=== PATIENT | male | born 1945 | race American Indian/Alaskan Native ===

== ENCOUNTER 2017-11-20 10:45 | Emergency (ER) | payer MEDICARE, OTHER ==
[2017-11-20 10:49] VITALS: BMI 23.4
--- NOTE | 2017-11-20 10:53 | C.PDOC ---
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 As per , patient was grocery shopping with her then suddenly experienced weakness, started shaking, and was unable to stand. reports as she helped the patient to regain balance and tried to make him stand, he was completely unable to stand up and could not follow command then she called 911 and came to ED. Denies LOC. As per EMS, patient has right sided weakness and slurred speech on arrival to ER. Fingerstick 82 mg/dl. Patient is currently awake in ER. Code stroke called in ER and patient was immediately transported to CT scan. Also as per , "patient experienced a head injury after falling on his head few years ago and he was bleeding and they drained his head." Time Seen by Provider: 11/20/17 10:51 Chief Complaint (Nursing): Weakness/Neurological Deficit History Per: EMS, Family () History/Exam Limitations: clinical condition Onset/Duration Of Symptoms: Hrs, Sudden Onset Current Symptoms Are (Timing): Still Present Activity At Onset Of Symptoms: Standing Associated Symptoms Preceding Syncopal Episode: No Predromal Symptoms (Sudden Onset) Seizure Or Post-ictal Symptoms: None Fall Associated With With Symptoms: No Recent travel outside of the [place]: No - Symptoms Of CVA Associated Symptoms: Decreased Ability To Walk Character Of Deficits: Right: Weakness Recent Aspirin Use: Unknown Current Coumadin Use?: Unknown Recent Head Trauma: No Past Medical History Reviewed: Historical Data, Nursing Documentation, Vital Signs Vital Signs: Last Vital Signs Temp 97.6 F 11/20/17 15:04 Pulse 81 11/20/17 15:04 Resp 16 11/20/17 15:04 BP 170/109 H 11/20/17 15:04 Pulse Ox 98 11/20/17 15:04 - Medical History PMH: HTN, Hypercholesterolemia Family History: States: No Known Family Hx Review Of Systems Except As Marked, All Systems Reviewed And Found Negative. Constitutional: Negative for: Fever Cardiovascular: Negative for: Chest Pain Physical Exam - Physical Exam Additional Physical Exam Comments: Constitutional: No acute distress. Head: Normocephalic. Atraumatic. Eyes: PERRL. ENT: Moist mucous membranes. Neck: Supple. Cardiovascular: Regular rate. Radial pulse 2+ bilaterally. Chest: No tenderness. Respiratory: Clear to auscultation bilaterally. GI: Soft. Nontender. Nondistended. Back: No CVA tenderness. Musculoskeletal: No tenderness or swelling of extremities. Skin: No rash. Neurologic: Alert, no focal deficit. ED Course And Treatment - Laboratory Results Result Diagrams: 11/20/17 10:55 11/20/17 10:55 Critical Care Time - Critical Care Note Total Time (in mins): 60 Comments: Required my immediate attention upon arrival and coordination with multiple specialists. Documented critical care: time excludes all time spent performing seperately billable procedures. NIHSS Stroke Scale 2 - Date/Time Evaluation Performed Date Performed: 11/20/17 Time Performed: 10:52 When Was NIHSS Performed: Baseline - How Severe is the Stroke Level of Consciousness: 0=Alert LOC to Questions: 0=Both comments correct LOC to commands: 0=Obeys both correctly Best Gaze: 0=Normal Visual: 0=No visual loss Facial: 0=Normal Motor Arm - Left: 0=No drift Motor Arm - Right: 2=Falls before 10 sec Motor Leg - Left: 0=No drift Motor Leg - Right: 2=Falls before 5 sec Limb Ataxia: 0=Absent Sensory: 0=Normal Best Language: 1=Mild to moderate aphasia Dysarthia: 0=Normal articulation Extinction & Inattention (Neglect): 0=Normal, no object Score: 5 Severity Of Stroke: 5-15 = Moderate Stroke Medical Decision Making Medical Decision Making: Code Stroke called. Administered IV fluids. ORdered BBK, blood work, head/neck CTA, CT head, EKG, and CXR. CT Head: Date of service: 11/20/2017 PROCEDURE: CT HEAD WITHOUT CONTRAST. HISTORY: Code Stroke COMPARISON: None available. TECHNIQUE: Axial computed tomography images were obtained through the head/brain without intravenous contrast. Radiation dose: Total exam DLP = 1251.8 mGy-cm. This CT exam was performed using one or more of the following dose reduction techniques: Automated exposure control, adjustment of the mA and/or kV according to patient size, and/or use of iterative reconstruction technique. FINDINGS: HEMORRHAGE: No intracranial hemorrhage. BRAIN: No mass effect or edema. Atrophy. Chronic microvascular ischemic changes. VENTRICLES: Unremarkable. No hydrocephalus. CALVARIUM: Prior bilateral cranioplasty. PARANASAL SINUSES: Opacification of the right maxillary sinus. MASTOID AIR CELLS: Unremarkable as visualized. No inflammatory changes. OTHER FINDINGS: None. IMPRESSION: No acute intracranial pathology. Age-related changes. Findings conveyed to Dr. Santiago by Dr. Rehman at 11:05 am on 11/20/2017. CXR: Date of service: 11/20/2017 HISTORY: Code Stroke COMPARISON: No prior. FINDINGS: LUNGS: No active pulmonary disease. PLEURA: No significant pleural effusion identified, no pneumothorax apparent. CARDIOVASCULAR: Atherosclerotic aortic calcifications. Cardiomediastinal silhouette enlarged. OSSEOUS STRUCTURES: Degenerative changes. VISUALIZED UPPER ABDOMEN: Normal. OTHER FINDINGS: None. IMPRESSION: No active disease. Head/Neck CTA: EXAM: CT Angiography Head With Intravenous Contrast CT Angiography Neck With Intravenous Contrast CLINICAL HISTORY: 72 years old, male; Signs and symptoms; Weakness; Additional info: Code stroke TECHNIQUE: Axial computed tomographic angiography images of the head and neck with intravenous contrast using CT angiography protocol. All CT scans at this facility use at least one of these dose optimization techniques: automated exposure control; mA and/or kV adjustment per patient size (includes targeted exams where dose is matched to clinical indication); or iterative reconstruction. MIP reconstructed images were created and reviewed. Coronal and sagittal reformatted images were created and reviewed. CONTRAST: 100 mL of VISIPAQUE administered intravenously. COMPARISON: No relevant prior studies available. FINDINGS: HEAD: Right anterior cerebral artery: Unremarkable. No occlusion or significant stenosis. No aneurysm. Right middle cerebral artery: Unremarkable. No occlusion or significant stenosis. No aneurysm. Right posterior cerebral artery: origin of USABILITY ENGINEER with irregular contour secondary to atherosclerotic disease. No occlusion or significant stenosis. No aneurysm. Left anterior cerebral artery: There maybe un paired A2 segment but there is a partial filled segment of vessel on the left, image 215 hard to connect somewhere either small left A2 w prox stenosis or occlusion and segmental filling or small frontopolar branch. No aneurysm. Left middle cerebral artery: Left M2 occlusion seen on image 209 series 2 likely due to acute thrombus in view of lack of prior infarct. Left M1 segment is patent. Left posterior cerebral artery: origin of USABILITY ENGINEER with irregular contour secondary to atherosclerotic disease. [facility] | Preliminary Radiology Report Basilar artery: There is flow basilar artery opacification. No occlusion or significant stenosis. No aneurysm. Brain: Cerebral and cerebellar volume loss. Patchy hypodensity is seen in the periventricular and subcortical white matter. Sinuses: There is opacification of right maxillary sinus with hyperdense material representing inspissated secretions versus blood versus fungal sinusitis only if clinically suspected. Sella: There is enlargement of sella with enlargement of the pituitary gland measuring 2.0 cm. Dental: Edentulous maxilla and mandible. NECK: Right common carotid artery: Unremarkable. No significant stenosis. No dissection or occlusion. Right internal carotid artery: Unremarkable. No significant stenosis. No dissection or occlusion. Right external carotid artery: Unremarkable. No occlusion. Right vertebral artery: Diffuse patent narrow caliber of right vertebral artery. Left common carotid artery: Unremarkable. No significant stenosis. No dissection or occlusion. Left internal carotid artery: Unremarkable. No significant stenosis. No dissection or occlusion. Left external carotid artery: There is mild narrowing of left ECA. This is seen on image 73 series 601. No occlusion. Left vertebral artery: Diffuse patent narrow caliber of left vertebral artery. Other vasculature: Bovine aortic arch. Lung apices: COPD with mild haziness of the lungs. Mediastinum: Nonspecific distention of the cervicothoracic esophagus with wall thickening with intraluminal debris may represent delayed emptying versus gastroesophageal reflux and can increase patient risk of aspiration. HEAD and NECK: Bones/joints: Bilateral craniectomy with osseous hardware. No acute fracture. No dislocation. Soft tissues: Unremarkable. No mass. CAROTID STENOSIS REFERENCE USING NASCET CRITERIA: % ICA stenosis = (1 - narrowest ICA diameter/diameter of distal cervical ICA) x 100. Mild - <50% stenosis. Moderate - 50-69% stenosis. Severe - 70-94% stenosis. Near occlusion - 95-99% stenosis. Occluded - 100% stenosis. IMPRESSION: 1. Left M2 occlusion seen on image 209 series 2 likely due to acute thrombus in view of lack of prior infarct. Correlation with patient's symptoms for the acute ischemic change of this region. 2. There is enlargement of sella with possible enlargement of the pituitary gland measuring 2.0 cm . The possibility of thrombosed aneurysm can't be excluded for the differential of sellar mass is but would probably follow up with prior history or MRI performed in the pituitary gland protocol. Correlation with clinical evaluation is recommended only if active pituitary gland function disease is physiologically and clinically suspected. Patient was not candidate for tPA. Angio reveals occlusion of MCA, Dr. Lema discussed case with Dr. Kline Neuro interventionalist at [place]. [place] [facility] [place] Afib, no ST elevations, no QTc prolongation. Disposition - Disposition Disposition: Trans to Other Acute Care Hosp Disposition Time: 12:00 Condition: GUARDED Forms: [facility] (Lithuanian) - POA Core Measure Indicators: Code Stroke - Clinical Impression Clinical Impression: CVA (cerebral vascular accident) - Scribe Statement The provider has reviewed the documentation as recorded by the Scribe Andie Carrillo All medical record entries made by the Scribe were at my direction and personally dictated by me. I have reviewed the chart and agree that the record accurately reflects my personal performance of the history, physical exam, medical decision making, and the department course for this patient. I have also personally directed, reviewed, and agree with the discharge instructions and disposition.
[2017-11-20 11:00] LABS: BASO % 0.6 % (0.0-2.0); EOS # 0.4 K/uL (0.0-0.7); EOS % 18.5 % (0.0-4.0); HEMOGLOBIN 11.3 g/dL (12.0-18.0); LYMPH # 0.8 K/uL (1.0-4.3); LYMPH % 33.7 % (20.0-40.0); MEAN CELL VOLUME 86.8 fL (80.0-94.0); MEAN CORPUSCULAR HEMOGLOBIN 28.7 pg (27.0-31.0); MEAN PLATELET VOLUME 8.1 fL (7.2-11.7); MONO # 0.3 K/uL (0.0-0.8); MONO % 13.5 % (0.0-10.0); NEUT # 0.8 K/uL (1.8-7.0); NEUT % 33.7 % (50.0-75.0); NRBC % 0.1 % (0.0-2.0); RBC 3.95 Mil/uL (4.40-5.90); RED CELL DISTRIBUTION WIDTH 14.9 % (11.5-14.5); WHITE BLOOD COUNT 2.4 K/uL (4.8-10.8)
[2017-11-20] MEDS ORDERED: Sodium Chloride 0.9% 1,000 ML IV SCH (11:00)
[2017-11-20] MEDS ORDERED: Iodixanol 320 MG/ML 100 ML BOTTLE IV ONE (11:05)
[2017-11-20 11:08] LABS: INR 1.2; PROTHROMBIN TIME 13.3 SECONDS (9.7-12.2)
--- NOTE | 2017-11-20 11:08 | CT ---
Date of service: 11/20/2017 PROCEDURE: CT HEAD WITHOUT CONTRAST. HISTORY: Code Stroke COMPARISON: None available. TECHNIQUE: Axial computed tomography images were obtained through the head/brain without intravenous contrast. Radiation dose: Total exam DLP = 1251.8 mGy-cm. This CT exam was performed using one or more of the following dose reduction techniques: Automated exposure control, adjustment of the mA and/or kV according to patient size, and/or use of iterative reconstruction technique. FINDINGS: HEMORRHAGE: No intracranial hemorrhage. BRAIN: No mass effect or edema. Atrophy. Chronic microvascular ischemic changes. VENTRICLES: Unremarkable. No hydrocephalus. CALVARIUM: Prior bilateral cranioplasty. PARANASAL SINUSES: Opacification of the right maxillary sinus. MASTOID AIR CELLS: Unremarkable as visualized. No inflammatory changes. OTHER FINDINGS: None. IMPRESSION: No acute intracranial pathology. Age-related changes. Findings conveyed to Dr. Santiago by Dr. Rehman at 11:05 am on 11/20/2017.
[2017-11-20 11:13] LABS: ALB/GLOB RATIO 1.1 (1.0-2.1); ALBUMIN 3.4 g/dL (3.5-5.0); CALCIUM 9.2 mg/dl (8.6-10.4)
[2017-11-20 11:23] LABS: TROPONIN I 0.09 ng/mL (0.00-0.120)
[2017-11-20 11:41] LABS: URINE BACTERIA MANY (<OCC); URINE BILIRUBIN NEGATIVE (NEGATIVE); URINE BLOOD 2+ (NEGATIVE); URINE CLARITY Hazy (Clear); URINE COLOR Amber (YELLOW); URINE GLUCOSE (UA) NORMAL (Normal); URINE LEUKOCYTE ESTERASE 2+ Leu/uL (Negative); URINE PROTEIN 2+ mg/dL (NEGATIVE); URINE UROBILINOGEN NORMAL mg/dL (0.2-1.0)
[2017-11-20 12:01] LABS: BARBITURATES, UR NEGATIVE (NEGATIVE); BENZODIAZEPINES, UR NEGATIVE (NEGATIVE); OPIATES, UR NEGATIVE (NEGATIVE); PHENCYCLIDINE, UR NEGATIVE (NEGATIVE)
--- NOTE | 2017-11-20 12:08 | RAD ---
Date of service: 11/20/2017 HISTORY: Code Stroke COMPARISON: No prior. FINDINGS: LUNGS: No active pulmonary disease. PLEURA: No significant pleural effusion identified, no pneumothorax apparent. CARDIOVASCULAR: Atherosclerotic aortic calcifications. Cardiomediastinal silhouette enlarged. OSSEOUS STRUCTURES: Degenerative changes. VISUALIZED UPPER ABDOMEN: Normal. OTHER FINDINGS: None. IMPRESSION: No active disease.
[2017-11-20 12:54] VITALS: RESP 16
[2017-11-20 15:07] VITALS: BP 170/109; PULSE 81; TEMP 97.6; O2SAT 98
--- NOTE | 2017-11-22 11:57 | CT ---
Date of service: 11/20/2017 PROCEDURE: CT Angiography of the Brain. HISTORY: code stroke COMPARISON: None available. TECHNIQUE: CT angiography of the intracranial arteries was performed. Coronal and sagittal maximum intensity projection reformated images were generated. This CT exam was performed using one or more of the following dose reduction techniques: Automated exposure control, adjustment of the mA and/or kV according to patient size, and/or use of iterative reconstruction technique. FINDINGS: INTERNAL CEREBRAL ARTERIES: Trace bilateral cavernous ICA atherosclerotic plaque, left greater than right. The skull base, petrous, cavernous and supraclinoid segments are bilaterally widely patent. ANTERIOR CEREBRAL ARTERIES: Unremarkable. A1 and A2 segments are widely patent. Smaller distal branches unremarkable, as visualized. MIDDLE CEREBRAL ARTERIES: Stenosis proximal segment of the posterior right M3 left MCA branch. M1 and M2 segments are widely patent. Perisylvian branches grossly symmetric. POSTERIOR CIRCULATION: Distal bilateral vertebral arteries are patent as well as the basilar artery though they all appear hypoplastic, likely on a congenital basis. Posterior Cerebral Arteries: Unremarkable. Posterior Inferior Cerebellar Arteries: Unremarkable. ANEURYSM/ VASCULAR MALFORMATIONS: None. OTHER FINDINGS: Prominent sella identified. Follow-up MRI with and without contrast recommended for additional characterization. IMPRESSION: Trace bilateral cavernous ICA atherosclerotic plaque with the bilateral anterior arteries otherwise widely patent as imaged. Remainder the examination appears remarkable only for a stenosis of the proximal left M3 MCA branch. 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 Follow-up MRI without contrast is recommended for added characterization if there is no contraindication. Discordant preliminary interpretation by Pal orlando, 11/20/2017.
--- NOTE | 2017-11-22 12:39 | CARD ---
APPROVED REPORT Date of service: 11/20/2017 EKG Measurement Heart [id number] <Conclusion> Atrial fibrillation with premature ventricular or aberrantly conducted complexes Incomplete right bundle branch block Nonspecific ST and T wave abnormality Abnormal ECG
== END 2017-11-20 15:06 | disposition short-term general hospital (02) ==
LOC: C.ER 10:45
DX: I63.9 Cerebral infarction, unspecified (principal); E78.00 Pure hypercholesterolemia, unspecified; I10 Essential (primary) hypertension
CPT/HCPCS: 70450; 70496; 70498; 71045; 80053; 80061; 81001; 82948; 83036; 84484; 85025; 85610; 85730; 86850; 86900; 87086; 87181; 93005; 99291; G0480; J7030; Q9967